=== PATIENT | male | born 1970 | race American Indian/Alaskan Native ===

== ENCOUNTER 2020-01-14 14:58 | Outpatient (CLI) | payer BC ==
--- NOTE | 2020-01-14 16:02 | XRay Report ---
RIGHT KNEE 2 VIEWS INDICATION / CLINICAL INFORMATION: RIGHT KNEE INJURY. COMPARISON: None available. FINDINGS: Patellar spurring. Soft tissue thickening in the region of the patellar tendon. No other significant skeletal abnormality Signer Name: Ortega Damon MD FACR Signed: 01/14/2020 3:58 PM Workstation Name: [id number]
== END 2020-01-14 14:59 | disposition home or self-care (01) ==
LOC: XRAY 14:58
PROVIDERS: ATTEND Pediatrics
DX: M79.89 Other specified soft tissue disorders (principal); R93.6 Abnormal findings on diagnostic imaging of limbs

== ENCOUNTER 2021-10-06 16:43 | Inpatient (IN) | payer SELFPAY ==
[2021-10-06 18:38] LABS: Bilirubin,Urine NEG (Negative); Blood,Urine LG (Negative); Color,Urine Yellow (Yellow); Mucus,Urine FEW /HPF; Urobilinogen,Urine < 2.0 mg/dL (<2.0)
[2021-10-06 19:03] LABS: Basophils % (Auto) 0.3 % (0.0-1.8); Eosinophils # (Auto) 0.1 K/mm3 (0.0-0.4); Eosinophils % (Auto) 0.7 % (0.0-4.3); Hematocrit 35.2 % (35.5-45.6); Hemoglobin 11.6 gm/dl (11.8-15.2); Lymphocytes # (Auto) 1.1 K/mm3 (1.2-5.4); Lymphocytes % (Auto) 9.7 % (13.4-35.0); Mean Corpuscular HGB Conc 33 % (32-34); Mean Corpuscular Volume 83 fl (84-94); Monocytes # (Auto) 0.9 K/mm3 (0.0-0.8); Platelet Count 276 K/mm3 (140-440); Red Blood Count 4.23 M/mm3 (3.65-5.03); Red Cell Distribution Width 14.7 % (13.2-15.2)
[2021-10-06 19:38] LABS: Calcium 8.6 mg/dL (8.4-10.2)
--- NOTE | 2021-10-06 22:24 | XRay Report ---
ABDOMEN 3 VIEW(S) INDICATION: constipation abd pain. COMPARISON: None available. FINDINGS: Bowel gas pattern: There is an expected amount of stool along the colon. No significant abnormality. Free air: None seen. Stones: None seen. Chest: No acute findings. Additional Findings: No additional significant findings. IMPRESSION: No significant abnormality to explain the patient's complaints. Signer Name: Lasha Petty MD Signed: 10/06/2021 10:19 PM Workstation Name: [id number]
[2021-10-07] MEDS ORDERED: SODIUM CHLORIDE 0.9% 1000 ML 1,000 ML IV ONE (02:35)
--- NOTE | 2021-10-07 04:07 | Cat Scan Report ---
CT ABDOMEN AND PELVIS WITHOUT CONTRAST INDICATION / CLINICAL INFORMATION: flank and right pelvic pain. Dysuria. TECHNIQUE: Axial CT images were obtained through the abdomen and pelvis without IV contrast. All CT scans at [facility] are performed using CT dose reduction for ALARA by means of automated exposure control. COMPARISON: Acute abdominal series from 10/06/2021. FINDINGS: LOWER CHEST: There is mild bibasilar atelectasis without other significant abnormalities. LIVER: Numerous cysts are seen throughout the liver. A event sales representative cyst located posteriorly along the right hepatic lobe measures up to 3.6 cm on image 47 of series 2. No other significant abnormalit y. GALLBLADDER: There is cholelithiasis without evidence of acute cholecystitis. BILE DUCTS: No significant abnormality. PANCREAS: No significant abnormality. SPLEEN: No significant abnormality. ADRENALS: No significant abnormality. RIGHT KIDNEY/URETER: There is mild hydroureteronephrosis and moderate right perinephric fat stranding without visualization of an obstructive mass or stone. LEFT KIDNEY/URETER: A large mass containing calcifications arises from the left upper renal pole marie uring 8.5 x 8.4 cm in axial dimensions on image 65 of series 2 with a craniocaudal dimension of 8.4 c m with evidence of invasion of the renal collecting system. There is mild left hydroureteronephrosis without evidence of an obstructive mass or stone. No other significant abnormality. STOMACH/SMALL BOWEL: No significant abnormality. COLON: No significant abnormality. APPENDIX: No significant abnormality. PERITONEUM: No free fluid. No free air. No fluid collection. LYMPH NODES: No significant adenopathy. VASCULATURE: No significant abnormality. URINARY BLADDER: There is moderate/severe distention of the bladder without other significant abnorma lities. REPRODUCTIVE ORGANS: The prostate gland is moderately enlarged. ADDITIONAL FINDINGS: None. BONES: No acute abnormality or aggressive appearing osseous lesion. Mild degenerative changes are not ed along the spine and pelvis. IMPRESSION: 1. Suspected left renal cell carcinoma as described above. No CT evidence of metastatic disease in [facility] abdomen or pelvis. 2. CT evidence of bladder outlet obstruction with likely secondary to bilateral hydroureteronephrosis , likely secondary to enlargement of the prostate gland. Please correlate with the clinical findings. Signer Name: Lasha Petty MD Signed: 10/07/2021 4:03 AM Workstation Name: [id number]
[2021-10-07] MEDS ORDERED: MORPHINE 4 MG/1 ML INJ IV PRN (05:38)
[2021-10-07] MEDS ORDERED: ONDANSETRON 4 MG/2 ML INJ IV PRN (05:38)
[2021-10-07] MEDS ORDERED: ALBUTEROL 2.5 MG/3 ML NEBU IH PRN (05:38)
[2021-10-07] MEDS ORDERED: ACETAMINOPHEN 325 MG TAB PO PRN (05:38)
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
--- NOTE | 2021-10-07 06:40 | Emergency Department Report ---
ED General Adult HPI - General Chief complaint: Abdominal Pain Stated complaint: GAS IN STOMACH/SIDE HURTS Time Seen by Provider: 10/07/21 02:36 Source: patient Mode of arrival: Ambulatory Limitations: No Limitations - History of Present Illness Initial comments: 51-year-old male with no reported significant past medical history exception of some alcohol use utilization presents emerged department complaining of having some issues with urination over the past 1 to 2 weeks. Has been progressively more frequent urges to urinate and with decreased urinary production and painful spasms to the flank region of an unknown etiology reports no hemoptysis no hematuria no hematemesis hematochezia no abdominal or flank trauma. Reports no previous known issues with his kidneys or his liver nor prostate. -: Gradual Severity scale (0 -10): 8 Quality: aching, dull Consistency: constant Improves with: none Worsens with: none Associated Symptoms: malaise. denies: confusion, chest pain, loss of appetite, syncope, weakness - Related Data Previous Rx's Medication Instructions Recorded Last Taken Type Cyclobenzaprine [Flexeril] 10 mg PO TID PRN #20 tablet 04/23/16 Unknown Rx Ibuprofen [Motrin 800 MG tab] 800 mg PO Q8HR PRN #30 tablet 04/23/16 Unknown Rx Allergies Allergy/AdvReac Type Severity Reaction Status Date / Time No Known Allergies Allergy Verified 10/07/21 05:43 ED Review of Systems ROS: Stated complaint: GAS IN STOMACH/SIDE HURTS Other details as noted in HPI Comment: All other systems reviewed and negative ED Past Medical Hx - Past Medical History Previous Medical History?: Yes Additional medical history: [id number] in 3 bulging disc - Surgical History Past Surgical History?: No - Social History Smoking Status: Never Smoker Substance Use Type: Alcohol - Medications Home Medications: Home Medications Medication Instructions Recorded Confirmed Last Taken Type Cyclobenzaprine [Flexeril] 10 mg PO TID PRN #20 tablet 04/23/16 Unknown Rx Ibuprofen [Motrin 800 MG tab] 800 mg PO Q8HR PRN #30 tablet 04/23/16 Unknown Rx ED Physical Exam - General Limitations: No Limitations General appearance: alert, in no apparent distress - Head Head exam: Present: atraumatic, normocephalic - Eye Eye exam: Present: normal appearance - ENT ENT exam: Present: mucous membranes moist - Neck Neck exam: Present: normal inspection - Respiratory Respiratory exam: Present: normal lung sounds bilaterally. Absent: respiratory distress - Cardiovascular Cardiovascular Exam: Present: regular rate, normal rhythm. Absent: systolic murmur, diastolic murmur, rubs, gallop - GI/Abdominal GI/Abdominal exam: Present: soft, tenderness (Vague discomfort in suprapubic region.), normal bowel sounds - Rectal Rectal exam: Present: deferred - Extremities Exam Extremities exam: Present: normal inspection - Back Exam Back exam: Present: normal inspection, CVA tenderness (R), CVA tenderness (L). Absent: paraspinal tenderness, vertebral tenderness - Neurological Exam Neurological exam: Present: alert, oriented X3, CN II-XII intact, normal gait - Psychiatric Psychiatric exam: Present: normal affect, normal mood - Skin Skin exam: Present: warm, dry, intact, normal color. Absent: rash ED Course Vital Signs 10/06/21 17:47 Temperature 98.7 F Pulse Rate 81 Respiratory 18 Rate Blood Pressure 138/76 O2 Sat by Pulse 99 Oximetry ED Medical Decision Making - Lab Data Result diagrams: 10/06/21 18:25 10/06/21 18:25 Lab Results 10/06/21 10/06/21 10/06/21 Range/Units 18:25 18:25 18:25 WBC 11.8 H (4.5-11.0) K/mm3 RBC 4.23 (3.65-5.03) M/mm3 Hgb 11.6 L (11.8-15.2) gm/dl Hct 35.2 L (35.5-45.6) % MCV 83 L (84-94) fl MCH 27 L (28-32) pg MCHC 33 (32-34) % RDW 14.7 (13.2-15.2) % Plt Count 276 (140-440) K/mm3 Lymph % (Auto) 9.7 L (13.4-35.0) % [place] % (Auto) 8.0 H (0.0-7.3) % Eos % (Auto) 0.7 (0.0-4.3) % Baso % (Auto) 0.3 (0.0-1.8) % Lymph # (Auto) 1.1 L (1.2-5.4) K/mm3 [place] # (Auto) 0.9 H (0.0-0.8) K/mm3 Eos # (Auto) 0.1 (0.0-0.4) K/mm3 Baso # (Auto) 0.0 (0.0-0.1) K/mm3 Seg Neutrophils % 81.3 H (40.0-70.0) % Seg Neutrophils # 9.6 H (1.8-7.7) K/mm3 Sodium 135 L (137-145) mmol/L Potassium 4.1 (3.6-5.0) mmol/L Chloride 93.5 L (98-107) mmol/L Carbon Dioxide 25 (22-30) mmol/L Anion Gap 21 mmol/L BUN 61 H (9-20) mg/dL Creatinine 8.2 H (0.8-1.3) mg/dL Estimated GFR 8 ml/min BUN/Creatinine Ratio 7 % Glucose 105 H (75-100) mg/dL Calcium 8.6 (8.4-10.2) mg/dL Phosphorus (2.5-4.5) mg/dL Magnesium (1.7-2.3) mg/dL Total Bilirubin 0.50 (0.1-1.2) mg/dL AST 21 (5-40) units/L ALT 24 (7-56) units/L Alkaline Phosphatase 61 (35-129) units/L Lactate Dehydrogenase (91-180) units/L Total Creatine Kinase (55-170) units/L Total Protein 7.4 (6.3-8.2) g/dL Albumin 4.0 (3.9-5) g/dL Albumin/Globulin Ratio 1.2 % Lipase 24 (13-60) units/L Urine Color (Yellow) Urine Turbidity (Clear) Urine pH (5.0-7.0) Ur Specific [place] (1.003-1.030) Urine Protein (Negative) mg/dL Urine Glucose (UA) (Negative) mg/dL Urine Ketones (Negative) mg/dL Urine Blood (Negative) Urine Nitrite (Negative) Urine Bilirubin (Negative) Urine Urobilinogen (<2.0) mg/dL Ur Leukocyte Esterase (Negative) Urine WBC (Auto) (0.0-6.0) /HPF Urine RBC (Auto) (0.0-6.0) /HPF U Epithel Cells (Auto) (0-13.0) /HPF Urine Mucus /HPF 05/21/22 05/21/22 05/21/22 Range/Units 18:25 18:25 Unknown WBC (4.5-11.0) K/mm3 RBC (3.65-5.03) M/mm3 Hgb (11.8-15.2) gm/dl Hct (35.5-45.6) % MCV (84-94) fl MCH (28-32) pg MCHC (32-34) % RDW (13.2-15.2) % Plt Count (140-440) K/mm3 Lymph % (Auto) (13.4-35.0) % [place] % (Auto) (0.0-7.3) % Eos % (Auto) (0.0-4.3) % Baso % (Auto) (0.0-1.8) % Lymph # (Auto) (1.2-5.4) K/mm3 [place] # (Auto) (0.0-0.8) K/mm3 Eos # (Auto) (0.0-0.4) K/mm3 Baso # (Auto) (0.0-0.1) K/mm3 Seg Neutrophils % (40.0-70.0) % Seg Neutrophils # (1.8-7.7) K/mm3 Sodium (137-145) mmol/L Potassium (3.6-5.0) mmol/L Chloride (98-107) mmol/L Carbon Dioxide (22-30) mmol/L Anion Gap mmol/L BUN (9-20) mg/dL Creatinine (0.8-1.3) mg/dL Estimated GFR ml/min BUN/Creatinine Ratio % Glucose (75-100) mg/dL Calcium (8.4-10.2) mg/dL Phosphorus 4.90 H (2.5-4.5) mg/dL Magnesium 2.60 H (1.7-2.3) mg/dL Total Bilirubin (0.1-1.2) mg/dL AST (5-40) units/L ALT (7-56) units/L Alkaline Phosphatase (35-129) units/L Lactate Dehydrogenase 374 H (91-180) units/L Total Creatine Kinase 1047 H (55-170) units/L Total Protein (6.3-8.2) g/dL Albumin (3.9-5) g/dL Albumin/Globulin Ratio % Lipase (13-60) units/L Urine Color Yellow (Yellow) Urine Turbidity Slightly-cloudy (Clear) Urine pH 7.0 (5.0-7.0) Ur Specific [place] 1.010 (1.003-1.030) Urine Protein 30 mg/dl (Negative) mg/dL Urine Glucose (UA) Neg (Negative) mg/dL Urine Ketones Neg (Negative) mg/dL Urine Blood Lg (Negative) Urine Nitrite Neg (Negative) Urine Bilirubin Neg (Negative) Urine Urobilinogen < 2.0 (<2.0) mg/dL Ur Leukocyte Esterase Neg (Negative) Urine WBC (Auto) 6.0 (0.0-6.0) /HPF Urine RBC (Auto) 29.0 (0.0-6.0) /HPF U Epithel Cells (Auto) 2.0 (0-13.0) /HPF Urine Mucus Few /HPF - Radiology Data Radiology results: report reviewed [facility] [address] [place] [address] Cat Scan Report Signed Patient: HELADIO BELTRAN JR MR#: [id number] : 1970 Acct:[id number] Age/Sex: 51 / M ADM Date: 10/06/21 Loc: ED Attending Dr: Ordering Physician: JOSE LUIS KELLEY Date of Service: 10/07/21 Procedure(s): CT abdomen pelvis wo con Accession Number(s): [id number] cc: JOSE LUIS KELLEY CT ABDOMEN AND PELVIS WITHOUT CONTRAST INDICATION / CLINICAL INFORMATION: flank and right pelvic pain. Dysuria. TECHNIQUE: Axial CT images were obtained through the abdomen and pelvis without IV contrast. All CT scans at this location are performed using CT dose reduction for ALARA by means of automated exposure control. COMPARISON: Acute abdominal series from 10/06/2021. FINDINGS: LOWER CHEST: There is mild bibasilar atelectasis without other significant abnormalities. LIVER: Numerous cysts are seen throughout the liver. A escrow representative cyst located posteriorly along the right hepatic lobe measures up to 3.6 cm on image 47 of series 2. No other significant abnormality. GALLBLADDER: There is cholelithiasis without evidence of acute cholecystitis. BILE DUCTS: No significant abnormality. PANCREAS: No significant abnormality. SPLEEN: No significant abnormality. ADRENALS: No significant abnormality. RIGHT KIDNEY/URETER: There is mild hydroureteronephrosis and moderate right perinephric fat stranding without visualization of an obstructive mass or stone. LEFT KIDNEY/URETER: A large mass containing calcifications arises from the left upper renal pole measuring 8.5 x 8.4 cm in axial dimensions on image 65 of series 2 with a craniocaudal dimension of 8.4 cm with evidence of invasion of the renal collecting system. There is mild left hydroureteronephrosis without evidence of an obstructive mass or stone. No other significant abnormality. STOMACH/SMALL BOWEL: No significant abnormality. COLON: No significant abnormality. APPENDIX: No significant abnormality. PERITONEUM: No free fluid. No free air. No fluid collection. LYMPH NODES: No significant adenopathy. VASCULATURE: No significant abnormality. URINARY BLADDER: There is moderate/severe distention of the bladder without other significant abnormalities. REPRODUCTIVE ORGANS: The prostate gland is moderately enlarged. ADDITIONAL FINDINGS: None. BONES: No acute abnormality or aggressive appearing osseous lesion. Mild degenerative changes are noted along the spine and pelvis. IMPRESSION: 1. Suspected left renal cell carcinoma as described above. No CT evidence of metastatic disease in the abdomen or pelvis. 2. CT evidence of bladder outlet obstruction with likely secondary to bilateral hydroureteronephrosis, likely secondary to enlargement of the prostate gland. Please correlate with the clinical findings. Signer Name: Lasha Petty MD Signed: 10/07/2021 4:03 AM Workstation Name: [id number] Transcribed By: [place] Dictated By: Lasha Petty MD Electronically Authenticated By: Lasha Petty MD Signed Date/Time: 10/07/21 0403 DD/ 0357 TD/TT: - Medical Decision Making 51-year-old male with acute renal failure and apparent metastatic lesions to the left kidney. No lower extremity edema present. No prior history. Soni catheter inserted. IV fluids initiated consulted with attending plan is to admit hospitalist accepted admission see his note for more detail. Critical care attestation.: If time is entered above; I have spent that time in minutes in the direct care of this critically ill patient, excluding procedure time. ED Disposition Clinical Impression: Renal failure, Urinary retention due to benign prostatic hyperplasia Disposition: ADMITTED INPATIENT Is pt being admited?: Yes Does the pt Need Aspirin: No Condition: Stable
--- NOTE | 2021-10-07 09:16 | Event Note ---
Date: 10/07/21 Patient was evaluated this morning, and he was found to be hemodynamically stable. #Bilateral hydroureteronephrosis #Obstructive/postrenal SAMMIE #Urinary retention #Hypermagnesemia #Hyperphosphatemia Creatinine 8.2 (baseline unknown), magnesium 2.6, phosphorus 4.9 Continue with Soni placement and monitor strict I's/O's. Creatinine should improve with IV fluid resuscitation and Soni management. Starting Flomax 0.4 mg daily Nephrology consulted; pending recs. Neurology consulted; pending recs. #Renal mass CT abdomen/pelvis without contrast (10/07/2021) revealing "large mass containing calcifications arising from the left upper renal pole measuring 8.5 x 8.4 cm with evidence of invasion of the renal collecting system. There is mild bilateral hydroureteronephrosis without visualization of an obstructive mass or stone. Suspected left renal cell carcinoma". Nephrology consulted; pending recs Urology consulted; pending recs #Rhabdomyolysis Creatine kinase 1047 Continue IV fluid resuscitation. Continue to monitor. #Leukocytosis WBC 11.8 Low clinical suspicion for infectious etiology given that the patient is hemodynamically stable, afebrile, and not showing other signs of SIRS. Continue to monitor. #Microcytic anemia Hemoglobin 8.6 Likely secondary to anemia of chronic disease should the renal mass be found to be malignant. Pending iron panel + TIBC Transfuse if hemoglobin less than 7 or patient becomes symptomatic. Continue to monitor. #Alcohol dependence - Counseled patient on the importance of ETOH cessation. Assess patient's current ETOH consumption. Assisted with trying to arrange resources for patient to adequately work towards ETOH cessation. Patient expresses understanding. Continue daily thiamine, folic acid, and multivitamin. -Time: +15 mins #Coordination of CARE time: 30 minutes. Total visit time equals 30 or more minutes with greater than 50% spent [id number] on coordination of care and counseling. #Advanced care planning -Disease education conducted, care plan discussed, diagnoses discussed, prognosis discussed, and patient acknowledges understanding with care plan -Time: +30 min
[2021-10-07] MEDS: IPRATROPIUM/ALBUTEROL SULFATE 3 ML AMPUL.NEB IH SCH ×3 (09:33→19:20)
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
[2021-10-07] MEDS ORDERED: FAMOTIDINE 20 MG/2 ML INJ IV SCH ×2 (10:00)
[2021-10-07] MEDS: TAMSULOSIN 0.4 MG CAP PO SCH (10:51)
[2021-10-07 11:21] LABS: Hematocrit 36.2 % (35.5-45.6); Hemoglobin 11.8 gm/dl (11.8-15.2); Mean Corpuscular HGB Conc 33 % (32-34); Mean Corpuscular Volume 83 fl (84-94); Platelet Count 291 K/mm3 (140-440); Red Blood Count 4.37 M/mm3 (3.65-5.03); Red Cell Distribution Width 15.1 % (13.2-15.2)
--- NOTE | 2021-10-07 18:19 | Electrocardiograph Report ---
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
[2021-10-07] MEDS: HEPARIN 5,000 UNIT/1 ML VIAL SUB-Q SCH (18:47)
[2021-10-08] MEDS: MORPHINE 2 MG/1 ML INJ IV PRN ×2 (01:39→01:41)
[2021-10-08] MEDS: HEPARIN 5,000 UNIT/1 ML VIAL SUB-Q SCH ×3 (01:47→22:15)
[2021-10-08] MEDS: SODIUM CHLORIDE 0.45% 1000 ML 1,000 ML IV SCH ×3 (01:50→22:20)
[2021-10-08 06:01] LABS: Basophils # (Auto) 0.1 K/mm3 (0.0-0.1); Eosinophils # (Auto) 0.2 K/mm3 (0.0-0.4); Eosinophils % (Auto) 3.6 % (0.0-4.3); Hematocrit 33.7 % (35.5-45.6); Lymphocytes # (Auto) 1.6 K/mm3 (1.2-5.4); Lymphocytes % (Auto) 24.6 % (13.4-35.0); Mean Corpuscular HGB Conc 33 % (32-34); Mean Corpuscular Volume 83 fl (84-94); Monocytes # (Auto) 0.7 K/mm3 (0.0-0.8); Monocytes % (Auto) 11.5 % (0.0-7.3); Platelet Count 274 K/mm3 (140-440); Red Blood Count 4.04 M/mm3 (3.65-5.03); Red Cell Distribution Width 15.1 % (13.2-15.2)
[2021-10-08] MEDS: IPRATROPIUM/ALBUTEROL SULFATE 3 ML AMPUL.NEB IH SCH (06:15)
[2021-10-08 06:19] LABS: Calcium 8.7 mg/dL (8.4-10.2)
[2021-10-08 07:51] LABS: Iron 61 ug/dL (49-181); Total Iron Binding Capacity 182 mcg/dL (250-450)
[2021-10-08] MEDS: TAMSULOSIN 0.4 MG CAP PO SCH (10:12)
[2021-10-08] MEDS: FAMOTIDINE 20 MG TAB PO SCH ×2 (10:12→22:15)
--- NOTE | 2021-10-08 10:50 | Progress Note ---
Assessment and Plan Assessment and plan: #Bilateral hydroureteronephrosis #Obstructive/postrenal AKIimproved #Urinary retention #Hypermagnesemia #Hyperphosphatemia Creatinine 8.2 (baseline unknown)--> 5.8--> 1.8 Magnesium 2.6, phosphorus 4.9. Continue to monitor with daily labs. Continue with Soni placement and monitor strict I's/O's. Creatinine should improve with IV fluid resuscitation and Soni management. Continue Flomax 0.4 mg daily Nephrology consulted; appreciate recs. Urology consulted; pending recs #Renal mass CT abdomen/pelvis without contrast (10/07/2021) revealing "large mass containing calcifications arising from the left upper renal pole measuring 8.5 x 8.4 cm with evidence of invasion of the renal collecting system. There is mild bilateral hydroureteronephrosis without visualization of an obstructive mass or stone. Suspected left renal cell carcinoma". Nephrology consulted; appreciate recs Hematology/oncology consulted; pending recs Due to the concern for renal cell carcinoma, biopsy is typically avoided in order to prevent seeding of the tract that is formed. Resection will likely be the ultimate therapy. Referring to hematology/oncology for recommendations. #Rhabdomyolysis Creatine kinase 1047 Continue IV fluid resuscitation. Continue to monitor. #Leukocytosisresolved WBC 11.8 Low clinical suspicion for infectious etiology given that the patient is hemodynamically stable, afebrile, and not showing other signs of SIRS. Continue to monitor. #Microcytic anemia Hemoglobin 8.6 Likely secondary to anemia of chronic disease should the renal mass be found to be malignant. Iron 61, TIBC 182 Transfuse if hemoglobin less than 7 or patient becomes symptomatic. Continue to monitor. #Alcohol dependence - Counseled patient on the importance of ETOH cessation. Assess patient's c urrent ETOH consumption. Assisted with trying to arrange resources for patient to adequately work towards ETOH cessation. Patient expresses understanding. Continue daily thiamine, folic acid, and multivitamin. -Time: +15 mins #Advanced care planning -Disease education conducted, care plan discussed, diagnoses discussed, prognosis discussed, and patient acknowledges understanding with care plan -Time: +30 min Disposition Plan: Continue medical management Total Time Spent with Patient (Minutes): 45 minutes History Interval history: No acute events overnight. Hospitalist Physical - Constitutional Vitals: Temp Pulse Resp BP Pulse Ox 98.8 F 84 18 132/60 95 10/08/21 01:48 10/08/21 06:22 10/08/21 06:22 10/08/21 01:48 10/08/21 06:19 General appearance: Present: no acute distress, well-nourished - EENT Eyes: Present: PERRL, EOM intact ENT: hearing intact, clear oral mucosa, dentition normal - Neck Neck: Present: supple, normal ROM - Respiratory Respiratory effort: normal Respiratory: bilateral: CTA - Cardiovascular Rhythm: regular Heart Sounds: Present: S1 & S2 - Extremities Extremities: no ischemia, pulses intact, pulses symmetrical, No edema, normal temperature, normal color, Full ROM Peripheral Pulses: within normal limits - Abdominal General gastrointestinal: soft, non-tender, non-distended, normal bowel sounds - Integumentary Integumentary: Present: clear, warm, dry - Psychiatric Psychiatric: appropriate mood/affect, intact judgment & insight, memory intact, cooperative - Neurologic Neurologic: CNII-XII intact, moves all extremities - Allied Health Allied health notes reviewed: nursing Results - Labs CBC & Chem 7: 10/08/21 05:26 10/08/21 05:26 Labs: Laboratory Last Values WBC 6.4 K/mm3 (4.5-11.0) 10/08/21 05:26 RBC 4.04 M/mm3 (3.65-5.03) 10/08/21 05:26 Hgb 11.0 gm/dl (11.8-15.2) L 10/08/21 05:26 Hct 33.7 % (35.5-45.6) L 10/08/21 05:26 MCV 83 fl (84-94) L 10/08/21 05:26 MCH 27 pg (28-32) L 10/08/21 05:26 MCHC 33 % (32-34) 10/08/21 05:26 RDW 15.1 % (13.2-15.2) 10/08/21 05:26 Plt Count 274 K/mm3 (140-440) 10/08/21 05:26 Lymph % (Auto) 24.6 % (13.4-35.0) 10/08/21 05:26 [place] % (Auto) 11.5 % (0.0-7.3) H 10/08/21 05:26 Eos % (Auto) 3.6 % (0.0-4.3) 10/08/21 05:26 Baso % (Auto) 1.0 % (0.0-1.8) 10/08/21 05:26 Lymph # (Auto) 1.6 K/mm3 (1.2-5.4) 10/08/21 05:26 [place] # (Auto) 0.7 K/mm3 (0.0-0.8) 10/08/21 05:26 Eos # (Auto) 0.2 K/mm3 (0.0-0.4) 10/08/21 05:26 Baso # (Auto) 0.1 K/mm3 (0.0-0.1) 10/08/21 05:26 Seg Neutrophils % 59.3 % (40.0-70.0) 10/08/21 05:26 Seg Neutrophils # 3.8 K/mm3 (1.8-7.7) 10/08/21 05:26 Sodium 140 mmol/L (137-145) 10/08/21 05:26 Potassium 4.8 mmol/L (3.6-5.0) 10/08/21 05:26 Chloride 104.9 mmol/L (98-107) 10/08/21 05:26 Carbon Dioxide 26 mmol/L (22-30) 10/08/21 05:26 Anion Gap 14 mmol/L 10/08/21 05:26 BUN 26 mg/dL (9-20) H 10/08/21 05:26 Creatinine 1.8 mg/dL (0.8-1.3) H D 10/08/21 05:26 Estimated GFR 48 ml/min 10/08/21 05:26 BUN/Creatinine Ratio 14 % 10/08/21 05:26 Glucose 85 mg/dL (75-100) 10/08/21 05:26 Calcium 8.7 mg/dL (8.4-10.2) 10/08/21 05:26 Phosphorus 4.90 mg/dL (2.5-4.5) H 10/06/21 18:25 Magnesium 2.60 mg/dL (1.7-2.3) H 10/06/21 18:25 Iron 61 ug/dL (49-181) 10/08/21 05:26 TIBC 182 mcg/dL (250-450) L 10/08/21 05:26 Total Bilirubin 0.50 mg/dL (0.1-1.2) 10/06/21 18:25 AST 21 units/L (5-40) 10/06/21 18:25 ALT 24 units/L (7-56) 10/06/21 18:25 Alkaline Phosphatase 61 units/L (35-129) 10/06/21 18:25 Lactate Dehydrogenase 374 units/L (91-180) H 10/06/21 18:25 Total Creatine Kinase 1047 units/L (55-170) H 10/06/21 18:25 Total Protein 7.4 g/dL (6.3-8.2) 10/06/21 18:25 Albumin 4.0 g/dL (3.9-5) 10/06/21 18:25 Albumin/Globulin Ratio 1.2 % 10/06/21 18:25 Lipase 24 units/L (13-60) 10/06/21 18:25 Urine Color Yellow (Yellow) 10/06/21 Unknown Urine Turbidity Slightly-cloudy (Clear) 10/06/21 Unknown Urine pH 7.0 (5.0-7.0) 10/06/21 Unknown Ur Specific [place] 1.010 (1.003-1.030) 10/06/21 Unknown Urine Protein 30 mg/dl mg/dL (Negative) 10/06/21 Unknown Urine Glucose (UA) Neg mg/dL (Negative) 10/06/21 Unknown Urine Ketones Neg mg/dL (Negative) 10/06/21 Unknown Urine Blood Lg (Negative) 10/06/21 Unknown Urine Nitrite Neg (Negative) 10/06/21 Unknown Urine Bilirubin Neg (Negative) 10/06/21 Unknown Urine Urobilinogen < 2.0 mg/dL (<2.0) 10/06/21 Unknown Ur Leukocyte Esterase Neg (Negative) 10/06/21 Unknown Urine WBC (Auto) 6.0 /HPF (0.0-6.0) 10/06/21 Unknown Urine RBC (Auto) 29.0 /HPF (0.0-6.0) 10/06/21 Unknown U Epithel Cells (Auto) 2.0 /HPF (0-13.0) 10/06/21 Unknown Urine Mucus Few /HPF 10/06/21 Unknown Soni/IV: Voiding Method Toilet Active Medications - Current Medications Current Medications: Generic Name Dose Route Start Last Admin Trade Name Freq PRN Reason Stop Dose Admin Acetaminophen 650 mg 10/07/21 05:38 Acetaminophen 325 Mg Tab PO Q4H PRN Pain MILD(1-3)/Fever >100.5/STARKS Albuterol 2.5 mg 10/07/21 05:38 Albuterol 2.5 Mg/3 Ml Nebu IH Q3HRT PRN Shortness Of Breath Famotidine 20 mg 10/08/21 10:00 10/08/21 10:12 Famotidine 20 Mg Tab PO 20 mg BID KENNETH Administration Heparin Sodium (Porcine) 5,000 unit 10/07/21 10:00 10/08/21 10:12 Heparin 5,000 Unit/1 Ml Vial SUB-Q 5,000 unit Q12HR KENNETH Administration Sodium Chloride 1,000 mls @ 100 mls/hr 10/07/21 06:00 10/08/21 01:50 Nacl 0.45% 1000 Ml IV 100 mls/hr DIRECT KENNETH Administration Morphine Sulfate 2 mg 10/07/21 05:38 10/08/21 01:41 Morphine 2 Mg/1 Ml Inj IV 2 mg Q4H PRN Administration Pain, Moderate (4-6) Ondansetron HCl 4 mg 10/07/21 05:38 Ondansetron 4 Mg/2 Ml Inj IV Q8H PRN Nausea And Vomiting Sodium Chloride 10 ml 10/07/21 10:00 10/08/21 10:13 Sodium Chloride 0.9% 10 Ml Flush Syringe IV 10 ml BID KENNETH Administration Sodium Chloride 10 ml 10/07/21 05:38 Sodium Chloride 0.9% 10 Ml Flush Syringe IV PRN PRN LINE FLUSH Tamsulosin HCl 0.4 mg 10/07/21 10:00 10/08/21 10:12 Tamsulosin 0.4 Mg Cap PO 0.4 mg QDAY KENNETH Administration Tramadol HCl 25 mg 10/08/21 10:24 Tramadol 50 Mg Tab PO Q4H PRN Pain, Moderate (4-6)
--- NOTE | 2021-10-08 10:59 | Progress Note ---
Assessment and Plan - Patient Problems (1) Urinary retention due to benign prostatic hyperplasia Current Visit: Yes Status: Acute Plan to address problem: S/p delarosa placement with increased urine output. Follow urology recommendations (2) SAMMIE (acute kidney injury) Current Visit: Yes Status: Acute Plan to address problem: secondary to urinary retention, renal function significantly improved on delarosa. Cont supportive care for SAMMIE, avoid further nephrotoxins, NSAIDs, IV contrast. Will monitor lytes, renal parameters closely and make further recommendations. (3) Renal cell carcinoma Current Visit: Yes Status: Acute Plan to address problem: recommend urology/Hem/Onc consultation (4) Anemia in chronic illness Current Visit: Yes Status: Acute Subjective Date of service: 10/08/21 Principal diagnosis: SAMMIE Interval history: Patient awake, alert, in no acute distress, increased UOP on delarosa Objective - Vital Signs Vital signs: Vital Signs - 12hr 10/08/21 10/08/21 10/08/21 01:48 06:19 06:22 Temperature 98.8 F Pulse Rate 80 Pulse Rate [ 84 Anterior Bilateral Throughout] Respiratory 16 Rate Respiratory 18 Rate [Anterior Bilateral Throughout] Blood Pressure 132/60 [Left] O2 Sat by Pulse 99 95 Oximetry - General Appearance General appearance: well-developed, well-nourished, appears stated age EENT: ATNC, PERRL, mucous membranes moist Neck: no JVD Respiratory: Present: Clear to Ascultation Cardiology: regular, S1S2 Gastrointestinal: normoactive bowel sounds Integumentary: no rash, other (no edema ) Neurologic: no focal deficit, alert and oriented x3, strength 5/5, CN 3-12 intact Psychiatric: mood/affect appropriate, cooperative - Lab 10/08/21 05:26 10/08/21 05:26 Most recent lab results Calcium 8.7 mg/dL (8.4-10.2) 10/08/21 05:26 Phosphorus 4.90 mg/dL (2.5-4.5) H 10/06/21 18:25 Magnesium 2.60 mg/dL (1.7-2.3) H 10/06/21 18:25 Medications & Allergies - Medications Allergies/Adverse Reactions: Allergies No Known Allergies Allergy (Verified 10/07/21 05:43) Home Medications: Home Medications Medication Instructions Recorded Confirmed Last Taken Type Cyclobenzaprine [Flexeril] 10 mg PO TID PRN #20 tablet 04/23/16 10/08/21 10/06/21 Rx Ibuprofen [Motrin 800 MG tab] 800 mg PO Q8HR PRN #30 tablet 04/23/16 10/08/21 10/06/21 Rx Active Medications: Generic Name Dose Route Start Last Admin Trade Name Freq PRN Reason Stop Dose Admin Acetaminophen 650 mg 10/07/21 05:38 Acetaminophen 325 Mg Tab PO Q4H PRN Pain MILD(1-3)/Fever >100.5/STARKS Albuterol 2.5 mg 10/07/21 05:38 Albuterol 2.5 Mg/3 Ml Nebu IH Q3HRT PRN Shortness Of Breath Famotidine 20 mg 10/08/21 10:00 10/08/21 10:12 Famotidine 20 Mg Tab PO 20 mg BID KENNETH Administration Heparin Sodium (Porcine) 5,000 unit 10/07/21 10:00 10/08/21 10:12 Heparin 5,000 Unit/1 Ml Vial SUB-Q 5,000 unit Q12HR KENNETH Administration Sodium Chloride 1,000 mls @ 100 mls/hr 10/07/21 06:00 10/08/21 01:50 Nacl 0.45% 1000 Ml IV 100 mls/hr DIRECT KENNETH Administration Morphine Sulfate 2 mg 10/07/21 05:38 10/08/21 01:41 Morphine 2 Mg/1 Ml Inj IV 2 mg Q4H PRN Administration Pain, Moderate (4-6) Ondansetron HCl 4 mg 10/07/21 05:38 Ondansetron 4 Mg/2 Ml Inj IV Q8H PRN Nausea And Vomiting Sodium Chloride 10 ml 10/07/21 10:00 10/08/21 10:13 Sodium Chloride 0.9% 10 Ml Flush Syringe IV 10 ml BID KENNETH Administration Sodium Chloride 10 ml 10/07/21 05:38 Sodium Chloride 0.9% 10 Ml Flush Syringe IV PRN PRN LINE FLUSH Tamsulosin HCl 0.4 mg 10/07/21 10:00 10/08/21 10:12 Tamsulosin 0.4 Mg Cap PO 0.4 mg QDAY KENNETH Administration Tramadol HCl 25 mg 10/08/21 10:24 Tramadol 50 Mg Tab PO Q4H PRN Pain, Moderate (4-6)
[2021-10-08] MEDS: traMADol 50 MG TAB PO PRN ×2 (11:49→15:46)
[2021-10-09] MEDS: traMADol 50 MG TAB PO PRN ×2 (04:45→17:57)
[2021-10-09 06:41] LABS: BUN/Creatinine Ratio 16; Blood Urea Nitrogen 21 mg/dL (9-20); Hemolysis Index 5
[2021-10-09] MEDS: TAMSULOSIN 0.4 MG CAP PO SCH (09:24)
[2021-10-09] MEDS: HEPARIN 5,000 UNIT/1 ML VIAL SUB-Q SCH ×2 (09:24→21:28)
[2021-10-09] MEDS: FAMOTIDINE 20 MG TAB PO SCH ×2 (09:24→21:28)
[2021-10-09] MEDS: SODIUM CHLORIDE 0.45% 1000 ML 1,000 ML IV SCH ×2 (09:25→21:29)
--- NOTE | 2021-10-09 09:34 | Progress Note ---
Assessment and Plan - Patient Problems (1) Urinary retention due to benign prostatic hyperplasia Current Visit: Yes Status: Acute Plan to address problem: S/p delarosa placement with increased urine output. Follow urology recommendations (2) SAMMIE (acute kidney injury) Current Visit: Yes Status: Acute Plan to address problem: secondary to urinary retention, renal function significantly improved on delarosa. Cont supportive care for SAMMIE, avoid further nephrotoxins, NSAIDs, IV contrast. Will monitor lytes, renal parameters closely and make further recommendations. (3) Renal cell carcinoma Current Visit: Yes Status: Acute Plan to address problem: recommend urology/Hem/Onc consultation (4) Anemia in chronic illness Current Visit: Yes Status: Acute Subjective Date of service: 10/09/21 Principal diagnosis: SAMMIE Interval history: Patient awake, alert, in no acute distress, increased UOP on delarosa Objective - Vital Signs Vital signs: Vital Signs - 12hr 10/08/21 10/09/21 10/09/21 22:41 04:49 07:17 Temperature 98.5 F 98.3 F Pulse Rate 69 73 Respiratory 20 18 Rate Blood Pressure 124/76 140/80 O2 Sat by Pulse 100 100 97 Oximetry - General Appearance General appearance: well-developed, well-nourished, appears stated age EENT: ATNC, PERRL, mucous membranes moist Neck: no JVD Respiratory: Present: Clear to Ascultation Cardiology: regular, S1S2 Gastrointestinal: normoactive bowel sounds Integumentary: no rash, other (no edema ) Neurologic: no focal deficit, alert and oriented x3, strength 5/5, CN 3-12 intact Psychiatric: mood/affect appropriate, cooperative - Lab 10/08/21 05:26 10/09/21 05:39 Most recent lab results Calcium 9.0 mg/dL (8.4-10.2) 10/09/21 05:39 Phosphorus 4.90 mg/dL (2.5-4.5) H 10/06/21 18:25 Magnesium 2.60 mg/dL (1.7-2.3) H 10/06/21 18:25 Medications & Allergies - Medications Allergies/Adverse Reactions: Allergies No Known Allergies Allergy (Verified 10/07/21 05:43) Home Medications: Home Medications Medication Instructions Recorded Confirmed Last Taken Type Cyclobenzaprine [Flexeril] 10 mg PO TID PRN #20 tablet 04/23/16 10/08/21 10/06/21 Rx Ibuprofen [Motrin 800 MG tab] 800 mg PO Q8HR PRN #30 tablet 04/23/16 10/08/21 10/06/21 Rx Active Medications: Generic Name Dose Route Start Last Admin Trade Name Shaniqua PRN Reason Stop Dose Admin Acetaminophen 650 mg 10/07/21 05:38 Acetaminophen 325 Mg Tab PO Q4H PRN Pain MILD(1-3)/Fever >100.5/STARKS Albuterol 2.5 mg 10/07/21 05:38 Albuterol 2.5 Mg/3 Ml Nebu IH Q3HRT PRN Shortness Of Breath Famotidine 20 mg 10/08/21 10:00 10/09/21 09:24 Famotidine 20 Mg Tab PO 20 mg BID KENNETH Administration Heparin Sodium (Porcine) 5,000 unit 10/07/21 10:00 10/09/21 09:24 Heparin 5,000 Unit/1 Ml Vial SUB-Q 5,000 unit Q12HR KENNETH Administration Sodium Chloride 1,000 mls @ 100 mls/hr 10/07/21 06:00 10/09/21 09:25 Nacl 0.45% 1000 Ml IV 100 mls/hr DIRECT KENNETH Administration Morphine Sulfate 2 mg 10/07/21 05:38 10/08/21 01:41 Morphine 2 Mg/1 Ml Inj IV 2 mg Q4H PRN Administration Pain, Moderate (4-6) Ondansetron HCl 4 mg 10/07/21 05:38 Ondansetron 4 Mg/2 Ml Inj IV Q8H PRN Nausea And Vomiting Sodium Chloride 10 ml 10/07/21 10:00 10/09/21 09:25 Sodium Chloride 0.9% 10 Ml Flush Syringe IV 10 ml BID KENNETH Administration Sodium Chloride 10 ml 10/07/21 05:38 Sodium Chloride 0.9% 10 Ml Flush Syringe IV PRN PRN LINE FLUSH Tamsulosin HCl 0.4 mg 10/07/21 10:00 10/09/21 09:24 Tamsulosin 0.4 Mg Cap PO 0.4 mg QDAY KENNETH Administration Tramadol HCl 25 mg 10/08/21 10:24 10/09/21 04:45 Tramadol 50 Mg Tab PO 25 mg Q4H PRN Administration Pain, Moderate (4-6)
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
--- NOTE | 2021-10-09 11:53 | Progress Note ---
Assessment and Plan Assessment and plan: Bilateral hydroureteronephrosis Obstructive/postrenal AKIimproved Urinary retention Hypermagnesemia Hyperphosphatemia Creatinine 8.2 (baseline unknown)--> 5.8--> 1.8 Magnesium 2.6, phosphorus 4.9. Continue to monitor with daily labs. Continue with Soni placement and monitor strict I's/O's. Creatinine should improve with IV fluid resuscitation and Soni management. Continue Flomax 0.4 mg daily Nephrology consulted; appreciate recs. Urology consulted; pending recs Renal mass CT abdomen/pelvis without contrast (10/07/2021) revealing "large mass containing calcifications arising from the left upper renal pole measuring 8.5 x 8.4 cm with evidence of invasion of the renal collecting system. There is mild bilateral hydroureteronephrosis without visualization of an obstructive mass or stone. Suspected left renal cell carcinoma". Nephrology consulted; appreciate recs Hematology/oncology consulted; pending recs Due to the concern for renal cell carcinoma, biopsy is typically avoided in order to prevent seeding of the tract that is formed. Resection will likely be the ultimate therapy. Referring to hematology/oncology for recommendations. Rhabdomyolysis Creatine kinase 1047 Continue IV fluid resuscitation. Continue to monitor. Leukocytosisresolved WBC 11.8 Low clinical suspicion for infectious etiology given that the patient is hemodynamically stable, afebrile, and not showing other signs of SIRS. Continue to monitor. Microcytic anemia Hemoglobin 8.6 Likely secondary to anemia of chronic disease should the renal mass be found to be malignant. Iron 61, TIBC 182 Transfuse if hemoglobin less than 7 or patient becomes symptomatic. Continue to monitor. Alcohol dependence - Counseled patient on the importance of ETOH cessation. Assess patient's current ETOH consumption. Assisted with trying to arrange resources for patient to adequately work towards ETOH cessation. Patient expresses understanding. Continue daily thiamine, folic acid, and multivitamin. History Interval history: No new issues overnight Hospitalist Physical - Constitutional Vitals: Temp Pulse Resp BP Pulse Ox 98.3 F 73 18 140/80 97 10/09/21 04:49 10/09/21 04:49 10/09/21 04:49 10/09/21 04:49 10/09/21 07:17 General appearance: Present: no acute distress, well-nourished - EENT Eyes: Present: PERRL, EOM intact ENT: hearing intact, clear oral mucosa, dentition normal - Neck Neck: Present: supple, normal ROM - Respiratory Respiratory effort: normal Respiratory: bilateral: CTA - Cardiovascular Rhythm: regular Heart Sounds: Present: S1 & S2. Absent: gallop, rub - Extremities Extremities: no ischemia, No edema, Full ROM - Abdominal General gastrointestinal: soft, non-tender, non-distended, normal bowel sounds - Integumentary Integumentary: Present: clear, warm, dry - Neurologic Neurologic: CNII-XII intact, moves all extremities Results - Labs CBC & Chem 7: 10/08/21 05:26 10/09/21 05:39 Labs: Laboratory Last Values WBC 6.4 K/mm3 (4.5-11.0) 10/08/21 05:26 RBC 4.04 M/mm3 (3.65-5.03) 10/08/21 05:26 Hgb 11.0 gm/dl (11.8-15.2) L 10/08/21 05:26 Hct 33.7 % (35.5-45.6) L 10/08/21 05:26 MCV 83 fl (84-94) L 10/08/21 05:26 MCH 27 pg (28-32) L 10/08/21 05:26 MCHC 33 % (32-34) 10/08/21 05:26 RDW 15.1 % (13.2-15.2) 10/08/21 05:26 Plt Count 274 K/mm3 (140-440) 10/08/21 05:26 Lymph % (Auto) 24.6 % (13.4-35.0) 10/08/21 05:26 [place] % (Auto) 11.5 % (0.0-7.3) H 10/08/21 05:26 Eos % (Auto) 3.6 % (0.0-4.3) 10/08/21 05:26 Baso % (Auto) 1.0 % (0.0-1.8) 10/08/21 05:26 Lymph # (Auto) 1.6 K/mm3 (1.2-5.4) 10/08/21 05:26 [place] # (Auto) 0.7 K/mm3 (0.0-0.8) 10/08/21 05:26 Eos # (Auto) 0.2 K/mm3 (0.0-0.4) 10/08/21 05:26 Baso # (Auto) 0.1 K/mm3 (0.0-0.1) 10/08/21 05:26 Seg Neutrophils % 59.3 % (40.0-70.0) 10/08/21 05:26 Seg Neutrophils # 3.8 K/mm3 (1.8-7.7) 10/08/21 05:26 Sodium 138 mmol/L (137-145) 10/09/21 05:39 Potassium 4.7 mmol/L (3.6-5.0) 10/09/21 05:39 Chloride 105.7 mmol/L (98-107) 10/09/21 05:39 Carbon Dioxide 23 mmol/L (22-30) 10/09/21 05:39 Anion Gap 14 mmol/L 10/09/21 05:39 BUN 21 mg/dL (9-20) H 10/09/21 05:39 Creatinine 1.3 mg/dL (0.8-1.3) 10/09/21 05:39 Estimated GFR > 60 ml/min 10/09/21 05:39 BUN/Creatinine Ratio 16 % 10/09/21 05:39 Glucose 139 mg/dL (75-100) H 10/09/21 05:39 Calcium 9.0 mg/dL (8.4-10.2) 10/09/21 05:39 Phosphorus 4.90 mg/dL (2.5-4.5) H 10/06/21 18:25 Magnesium 2.60 mg/dL (1.7-2.3) H 10/06/21 18:25 Iron 61 ug/dL (49-181) 10/08/21 05:26 TIBC 182 mcg/dL (250-450) L 10/08/21 05:26 Ferritin 666.4 ng/mL (30.0-300.0) H 10/08/21 10:15 Total Bilirubin 0.50 mg/dL (0.1-1.2) 10/06/21 18:25 AST 21 units/L (5-40) 10/06/21 18:25 ALT 24 units/L (7-56) 10/06/21 18:25 Alkaline Phosphatase 61 units/L (35-129) 10/06/21 18:25 Lactate Dehydrogenase 374 units/L (91-180) H 10/06/21 18:25 Total Creatine Kinase 1047 units/L (55-170) H 10/06/21 18:25 Total Protein 7.4 g/dL (6.3-8.2) 10/06/21 18:25 Albumin 4.0 g/dL (3.9-5) 10/06/21 18:25 Albumin/Globulin Ratio 1.2 % 10/06/21 18:25 Lipase 24 units/L (13-60) 10/06/21 18:25 Urine Color Yellow (Yellow) 10/06/21 Unknown Urine Turbidity Slightly-cloudy (Clear) 10/06/21 Unknown Urine pH 7.0 (5.0-7.0) 10/06/21 Unknown Ur Specific [place] 1.010 (1.003-1.030) 10/06/21 Unknown Urine Protein 30 mg/dl mg/dL (Negative) 10/06/21 Unknown Urine Glucose (UA) Neg mg/dL (Negative) 10/06/21 Unknown Urine Ketones Neg mg/dL (Negative) 10/06/21 Unknown Urine Blood Lg (Negative) 10/06/21 Unknown Urine Nitrite Neg (Negative) 10/06/21 Unknown Urine Bilirubin Neg (Negative) 10/06/21 Unknown Urine Urobilinogen < 2.0 mg/dL (<2.0) 10/06/21 Unknown Ur Leukocyte Esterase Neg (Negative) 10/06/21 Unknown Urine WBC (Auto) 6.0 /HPF (0.0-6.0) 10/06/21 Unknown Urine RBC (Auto) 29.0 /HPF (0.0-6.0) 10/06/21 Unknown U Epithel Cells (Auto) 2.0 /HPF (0-13.0) 10/06/21 Unknown Urine Mucus Few /HPF 10/06/21 Unknown Soni/IV: Voiding Method Indwelling Catheter Active Medications - Current Medications Current Medications: Generic Name Dose Route Start Last Admin Trade Name Freq PRN Reason Stop Dose Admin Acetaminophen 650 mg 10/07/21 05:38 Acetaminophen 325 Mg Tab PO Q4H PRN Pain MILD(1-3)/Fever >100.5/STARKS Albuterol 2.5 mg 10/07/21 05:38 Albuterol 2.5 Mg/3 Ml Nebu IH Q3HRT PRN Shortness Of Breath Famotidine 20 mg 10/08/21 10:00 10/09/21 09:24 Famotidine 20 Mg Tab PO 20 mg BID KENNETH Administration Heparin Sodium (Porcine) 5,000 unit 10/07/21 10:00 10/09/21 09:24 Heparin 5,000 Unit/1 Ml Vial SUB-Q 5,000 unit Q12HR KENNETH Administration Sodium Chloride 1,000 mls @ 100 mls/hr 10/07/21 06:00 10/09/21 09:25 Nacl 0.45% 1000 Ml IV 100 mls/hr DIRECT KENNETH Administration Morphine Sulfate 2 mg 10/07/21 05:38 10/08/21 01:41 Morphine 2 Mg/1 Ml Inj IV 2 mg Q4H PRN Administration Pain, Moderate (4-6) Ondansetron HCl 4 mg 10/07/21 05:38 Ondansetron 4 Mg/2 Ml Inj IV Q8H PRN Nausea And Vomiting Sodium Chloride 10 ml 10/07/21 10:00 10/09/21 09:25 Sodium Chloride 0.9% 10 Ml Flush Syringe IV 10 ml BID KENNETH Administration Sodium Chloride 10 ml 10/07/21 05:38 Sodium Chloride 0.9% 10 Ml Flush Syringe IV PRN PRN LINE FLUSH Tamsulosin HCl 0.4 mg 10/07/21 10:00 10/09/21 09:24 Tamsulosin 0.4 Mg Cap PO 0.4 mg QDAY KENNETH Administration Tramadol HCl 25 mg 10/08/21 10:24 10/09/21 04:45 Tramadol 50 Mg Tab PO 25 mg Q4H PRN Administration Pain, Moderate (4-6)
--- NOTE | 2021-10-09 14:23 | Cat Scan Report ---
CT CHEST WITHOUT CONTRAST INDICATION / CLINICAL INFORMATION: Staging; rule out metastasis. Renal mass. TECHNIQUE: Axial CT images were obtained through the chest without contrast. All CT scans at this critical access hospital ation are performed using CT dose reduction for ALARA by means of automated exposure control. COMPARISON: No previous CT chest. Correlation is made with the CT abdomen pelvis without contrast 09/17. FINDINGS: HEART: No significant abnormality. CORONARY ARTERY CALCIFICATION: Absent -- None. THORACIC AORTA: No significant abnormality. MEDIASTINUM / MILVIA: No significant abnormality. PLEURA: No pleural effusion. No pneumothorax. LUNGS: No acute air space or interstitial disease. There is a tiny 2 mm nodule in the posterior right upper lobe on image 54, series 2 which is too small to characterize. I suspect a benign etiology alt danette follow-up is recommended. No suspicious pulmonary nodule or mass. ADDITIONAL FINDINGS: None. UPPER ABDOMEN: Numerous liver cysts. Large heterogeneous left renal mass measuring up to 10.3 cm is p artially imaged. SKELETAL SYSTEM: No significant abnormality. No suspicious bony lesion. IMPRESSION: No convincing evidence for metastatic disease to the chest. Tiny 2 mm nodule is noted in the right up per lobe. Consider follow-up in 3 months to ensure stability. Signer Name: Ayan Mayes Jr, MD Signed: 10/09/2021 2:19 PM Workstation Name: [id number]
[2021-10-10 04:36] VITALS: BP 129/77
[2021-10-10] MEDS: SODIUM CHLORIDE 0.45% 1000 ML 1,000 ML IV SCH (06:01)
[2021-10-10] MEDS: TAMSULOSIN 0.4 MG CAP PO SCH (10:30)
[2021-10-10] MEDS: FAMOTIDINE 20 MG TAB PO SCH (10:30)
[2021-10-10] MEDS: HEPARIN 5,000 UNIT/1 ML VIAL SUB-Q SCH (10:31)
--- NOTE | 2021-10-10 13:30 | Progress Note ---
Assessment and Plan Assessment and plan: Bilateral hydroureteronephrosis Obstructive/postrenal AKIimproved Urinary retention Hypermagnesemia Hyperphosphatemia Creatinine 8.2 (baseline unknown)--> 5.8--> 1.8 Magnesium 2.6, phosphorus 4.9. Continue to monitor with daily labs. Continue with Soni placement and monitor strict I's/O's. Creatinine should improve with IV fluid resuscitation and Soni management. Continue Flomax 0.4 mg daily Nephrology consulted; appreciate recs. Urology consulted; pending recs Renal mass CT abdomen/pelvis without contrast (10/07/2021) revealing "large mass containing calcifications arising from the left upper renal pole measuring 8.5 x 8.4 cm with evidence of invasion of the renal collecting system. There is mild bilateral hydroureteronephrosis without visualization of an obstructive mass or stone. Suspected left renal cell carcinoma". Nephrology consulted; appreciate recs Hematology/oncology consulted; pending recs Due to the concern for renal cell carcinoma, biopsy is typically avoided in order to prevent seeding of the tract that is formed. Resection will likely be the ultimate therapy. Referring to hematology/oncology for recommendations. Rhabdomyolysis Creatine kinase 1047 Continue IV fluid resuscitation. Continue to monitor. Leukocytosisresolved WBC 11.8 Low clinical suspicion for infectious etiology given that the patient is hemodynamically stable, afebrile, and not showing other signs of SIRS. Continue to monitor. Microcytic anemia Hemoglobin 8.6 Likely secondary to anemia of chronic disease should the renal mass be found to be malignant. Iron 61, TIBC 182 Transfuse if hemoglobin less than 7 or patient becomes symptomatic. Continue to monitor. Alcohol dependence - Counseled patient on the importance of ETOH cessation. Assess patient's current ETOH consumption. Assisted with trying to arrange resources for patient to adequately work towards ETOH cessation. Patient expresses understanding. Continue daily thiamine, folic acid, and multivitamin. 10/10/2021. We will follow-up tumor markers, H CG and AFP. Oncology recommends chest CT without contrast for staging and to rule out mets. Urology consulted. Dr. Hoskins reports that the evaluation is not an emergency and can be followed up as an outpatient. Continue with Soni catheter. Consider nephrectomy if no metastasis. If metastatic, immunotherapy and nephrectomy is warranted History Interval history: No new issues overnight Hospitalist Physical - Constitutional Vitals: Temp Pulse Resp BP Pulse Ox 98.3 F 94 H 18 129/77 98 10/10/21 04:18 10/10/21 04:18 10/10/21 04:18 10/10/21 04:18 10/10/21 09:00 General appearance: Present: no acute distress, well-nourished - EENT Eyes: Present: PERRL, EOM intact ENT: hearing intact, clear oral mucosa, dentition normal - Neck Neck: Present: supple, normal ROM - Respiratory Respiratory effort: normal Respiratory: bilateral: CTA - Cardiovascular Rhythm: regular Heart Sounds: Present: S1 & S2. Absent: gallop, rub - Extremities Extremities: no ischemia, No edema, Full ROM - Abdominal General gastrointestinal: soft, non-tender, non-distended, normal bowel sounds - Integumentary Integumentary: Present: clear, warm, dry - Neurologic Neurologic: CNII-XII intact, moves all extremities Results - Labs CBC & Chem 7: 10/08/21 05:26 10/09/21 05:39 Labs: Laboratory Last Values WBC 6.4 K/mm3 (4.5-11.0) 10/08/21 05:26 RBC 4.04 M/mm3 (3.65-5.03) 10/08/21 05:26 Hgb 11.0 gm/dl (11.8-15.2) L 10/08/21 05:26 Hct 33.7 % (35.5-45.6) L 10/08/21 05:26 MCV 83 fl (84-94) L 10/08/21 05:26 MCH 27 pg (28-32) L 10/08/21 05:26 MCHC 33 % (32-34) 10/08/21 05:26 RDW 15.1 % (13.2-15.2) 10/08/21 05:26 Plt Count 274 K/mm3 (140-440) 10/08/21 05:26 Lymph % (Auto) 24.6 % (13.4-35.0) 10/08/21 05:26 [place] % (Auto) 11.5 % (0.0-7.3) H 10/08/21 05:26 Eos % (Auto) 3.6 % (0.0-4.3) 10/08/21 05:26 Baso % (Auto) 1.0 % (0.0-1.8) 10/08/21 05:26 Lymph # (Auto) 1.6 K/mm3 (1.2-5.4) 10/08/21 05:26 [place] # (Auto) 0.7 K/mm3 (0.0-0.8) 10/08/21 05:26 Eos # (Auto) 0.2 K/mm3 (0.0-0.4) 10/08/21 05:26 Baso # (Auto) 0.1 K/mm3 (0.0-0.1) 10/08/21 05:26 Seg Neutrophils % 59.3 % (40.0-70.0) 10/08/21 05:26 Seg Neutrophils # 3.8 K/mm3 (1.8-7.7) 10/08/21 05:26 Sodium 138 mmol/L (137-145) 10/09/21 05:39 Potassium 4.7 mmol/L (3.6-5.0) 10/09/21 05:39 Chloride 105.7 mmol/L (98-107) 10/09/21 05:39 Carbon Dioxide 23 mmol/L (22-30) 10/09/21 05:39 Anion Gap 14 mmol/L 10/09/21 05:39 BUN 21 mg/dL (9-20) H 10/09/21 05:39 Creatinine 1.3 mg/dL (0.8-1.3) 10/09/21 05:39 Estimated GFR > 60 ml/min 10/09/21 05:39 BUN/Creatinine Ratio 16 % 10/09/21 05:39 Glucose 139 mg/dL (75-100) H 10/09/21 05:39 Calcium 9.0 mg/dL (8.4-10.2) 10/09/21 05:39 Phosphorus 4.90 mg/dL (2.5-4.5) H 10/06/21 18:25 Magnesium 2.60 mg/dL (1.7-2.3) H 10/06/21 18:25 Iron 61 ug/dL (49-181) 10/08/21 05:26 TIBC 182 mcg/dL (250-450) L 10/08/21 05:26 Ferritin 666.4 ng/mL (30.0-300.0) H 10/08/21 10:15 Total Bilirubin 0.50 mg/dL (0.1-1.2) 10/06/21 18:25 AST 21 units/L (5-40) 10/06/21 18:25 ALT 24 units/L (7-56) 10/06/21 18:25 Alkaline Phosphatase 61 units/L (35-129) 10/06/21 18:25 Lactate Dehydrogenase 374 units/L (91-180) H 10/06/21 18:25 Total Creatine Kinase 1047 units/L (55-170) H 10/06/21 18:25 Total Protein 7.4 g/dL (6.3-8.2) 10/06/21 18:25 Albumin 4.0 g/dL (3.9-5) 10/06/21 18:25 Albumin/Globulin Ratio 1.2 % 10/06/21 18:25 Lipase 24 units/L (13-60) 10/06/21 18:25 HCG, Quant < 2 mIU/mL (0-1) H 10/09/21 12:57 Urine Color Yellow (Yellow) 10/06/21 Unknown Urine Turbidity Slightly-cloudy (Clear) 10/06/21 Unknown Urine pH 7.0 (5.0-7.0) 10/06/21 Unknown Ur Specific [place] 1.010 (1.003-1.030) 10/06/21 Unknown Urine Protein 30 mg/dl mg/dL (Negative) 10/06/21 Unknown Urine Glucose (UA) Neg mg/dL (Negative) 10/06/21 Unknown Urine Ketones Neg mg/dL (Negative) 10/06/21 Unknown Urine Blood Lg (Negative) 10/06/21 Unknown Urine Nitrite Neg (Negative) 10/06/21 Unknown Urine Bilirubin Neg (Negative) 10/06/21 Unknown Urine Urobilinogen < 2.0 mg/dL (<2.0) 10/06/21 Unknown Ur Leukocyte Esterase Neg (Negative) 10/06/21 Unknown Urine WBC (Auto) 6.0 /HPF (0.0-6.0) 10/06/21 Unknown Urine RBC (Auto) 29.0 /HPF (0.0-6.0) 10/06/21 Unknown U Epithel Cells (Auto) 2.0 /HPF (0-13.0) 10/06/21 Unknown Urine Mucus Few /HPF 10/06/21 Unknown Soni/IV: Voiding Method Indwelling Catheter Active Medications - Current Medications Current Medications: Generic Name Dose Route Start Last Admin Trade Name Freq PRN Reason Stop Dose Admin Acetaminophen 650 mg 10/07/21 05:38 Acetaminophen 325 Mg Tab PO Q4H PRN Pain MILD(1-3)/Fever >100.5/STARKS Albuterol 2.5 mg 10/07/21 05:38 Albuterol 2.5 Mg/3 Ml Nebu IH Q3HRT PRN Shortness Of Breath Famotidine 20 mg 10/08/21 10:00 10/10/21 10:30 Famotidine 20 Mg Tab PO 20 mg BID KENNETH Administration Heparin Sodium (Porcine) 5,000 unit 10/07/21 10:00 10/10/21 10:31 Heparin 5,000 Unit/1 Ml Vial SUB-Q 5,000 unit Q12HR KENNETH Administration Sodium Chloride 1,000 mls @ 100 mls/hr 10/07/21 06:00 10/10/21 06:01 Nacl 0.45% 1000 Ml IV 100 mls/hr DIRECT KENENTH Administration Morphine Sulfate 2 mg 10/07/21 05:38 10/08/21 01:41 Morphine 2 Mg/1 Ml Inj IV 2 mg Q4H PRN Administration Pain, Moderate (4-6) Ondansetron HCl 4 mg 10/07/21 05:38 Ondansetron 4 Mg/2 Ml Inj IV Q8H PRN Nausea And Vomiting Sodium Chloride 10 ml 10/07/21 10:00 10/10/21 10:34 Sodium Chloride 0.9% 10 Ml Flush Syringe IV 10 ml BID KENNETH Administration Sodium Chloride 10 ml 10/07/21 05:38 Sodium Chloride 0.9% 10 Ml Flush Syringe IV PRN PRN LINE FLUSH Tamsulosin HCl 0.4 mg 10/07/21 10:00 10/10/21 10:30 Tamsulosin 0.4 Mg Cap PO 0.4 mg QDAY KENNETH Administration Tramadol HCl 25 mg 10/08/21 10:24 10/09/21 17:57 Tramadol 50 Mg Tab PO 25 mg Q4H PRN Administration Pain, Moderate (4-6)
--- NOTE | 2021-10-10 13:34 | Progress Note ---
Assessment and Plan jacquie has delarosa renal mass pt fully aware f/u friday in office home with delarosa dictated Subjective Date of service: 10/10/21 Principal diagnosis: SAMMIE Objective - Constitutional Vitals: Vital Signs - 12hr 10/10/21 10/10/21 04:18 09:00 Temperature 98.3 F Pulse Rate 94 H Respiratory 18 Rate Blood Pressure 129/77 O2 Sat by Pulse 98 98 Oximetry General appearance: Present: no acute distress - Neck Neck: supple - Respiratory Respiratory effort: normal Extremities: no ischemia - Gastrointestinal General gastrointestinal: Present: soft, non-tender Rectal Exam: normal rectal tone - Labs CBC & Chem 7: 10/08/21 05:26 10/09/21 05:39 Labs: Abnormal lab results 10/09/21 Range/Units 12:57 HCG, Quant < 2 H (0-1) mIU/mL Medications & Allergies - Medications Allergies/Adverse Reactions: Allergies No Known Allergies Allergy (Verified 10/07/21 05:43) Home Medications: Home Medications Medication Instructions Recorded Confirmed Last Taken Type Cyclobenzaprine [Flexeril] 10 mg PO TID PRN #20 tablet 04/23/16 10/08/21 10/06/21 Rx Ibuprofen [Motrin 800 MG tab] 800 mg PO Q8HR PRN #30 tablet 04/23/16 10/08/21 10/06/21 Rx Active Medications: Generic Name Dose Route Start Last Admin Trade Name Freq PRN Reason Stop Dose Admin Acetaminophen 650 mg 10/07/21 05:38 Acetaminophen 325 Mg Tab PO Q4H PRN Pain MILD(1-3)/Fever >100.5/STARKS Albuterol 2.5 mg 10/07/21 05:38 Albuterol 2.5 Mg/3 Ml Nebu IH Q3HRT PRN Shortness Of Breath Famotidine 20 mg 10/08/21 10:00 10/10/21 10:30 Famotidine 20 Mg Tab PO 20 mg BID KENNETH Administration Heparin Sodium (Porcine) 5,000 unit 10/07/21 10:00 10/10/21 10:31 Heparin 5,000 Unit/1 Ml Vial SUB-Q 5,000 unit Q12HR KENNETH Administration Sodium Chloride 1,000 mls @ 100 mls/hr 10/07/21 06:00 10/10/21 06:01 Nacl 0.45% 1000 Ml IV 100 mls/hr DIRECT KENNETH Administration Morphine Sulfate 2 mg 10/07/21 05:38 10/08/21 01:41 Morphine 2 Mg/1 Ml Inj IV 2 mg Q4H PRN Administration Pain, Moderate (4-6) Ondansetron HCl 4 mg 10/07/21 05:38 Ondansetron 4 Mg/2 Ml Inj IV Q8H PRN Nausea And Vomiting Sodium Chloride 10 ml 10/07/21 10:00 10/10/21 10:34 Sodium Chloride 0.9% 10 Ml Flush Syringe IV 10 ml BID KENNETH Administration Sodium Chloride 10 ml 10/07/21 05:38 Sodium Chloride 0.9% 10 Ml Flush Syringe IV PRN PRN LINE FLUSH Tamsulosin HCl 0.4 mg 10/07/21 10:00 10/10/21 10:30 Tamsulosin 0.4 Mg Cap PO 0.4 mg QDAY KENNETH Administration Tramadol HCl 25 mg 10/08/21 10:24 10/09/21 17:57 Tramadol 50 Mg Tab PO 25 mg Q4H PRN Administration Pain, Moderate (4-6)
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
--- NOTE | 2021-10-12 07:25 | Consultation ---
DATE OF CONSULTATION: 10/10/2021 CHIEF COMPLAINT: Renal mass, urinary retention, renal insufficiency. HISTORY OF PRESENT ILLNESS: This is a 51-year-old gentleman in good health, who presented with urinary retention, constipation. His creatinine was elevated to 5.8, which is now normal at 1.3. He had a CT scan which shows mild to moderate hydronephrosis with distended bladder. He also has a 10 cm left renal mass. Never had gross hematuria. PAST MEDICAL HISTORY: Basically unremarkable. He denies any recent cold or decongestants. He had a CT of the abdomen and pelvis with no metastatic disease noted and 2 mm pulmonary nodule, nonspecific. PAST SURGICAL HISTORY: Negative. SOCIAL HISTORY: Negative. FAMILY HISTORY: Negative. REVIEW OF SYSTEMS: Unremarkable until recently. PHYSICAL EXAMINATION: GENERAL: He is awake. He is in no distress. ABDOMEN: Soft, nondistended. No guarding, rebound. Minimal fullness left upper quadrant. GENITALIA: Testicles are descended bilaterally. No palpable masses. Digital rectal exam, not enlarged prostate rectally. No nodules, no tenderness. IMPRESSION AND PLAN: Urinary retention, azotemia, which is improved to normal. Soni draining clear urine. Left renal mass with possible collecting system invasion, likely will need left nephrectomy and Soni will remain in and we will give him a voiding trial within the next week. TID: [id number] RECEIPT: [id number] MELBA/YOON
== END 2021-10-10 15:27 | disposition home or self-care (01) | DRG 694 ==
LOC: ED 16:43 → 3A 10-07 05:38
PROVIDERS: ADMIT Hospitalist; ATTEND Hospitalist
DX: N13.30 Unspecified hydronephrosis (principal); C64.9 Malignant neoplasm of unspecified kidney, except renal pelvis; C79.00 Secondary malignant neoplasm of unspecified kidney and renal pelvis; M62.82 Rhabdomyolysis; N17.9 Acute kidney failure, unspecified; F10.10 Alcohol abuse, uncomplicated; D64.9 Anemia, unspecified; E83.41 Hypermagnesemia; N40.1 Benign prostatic hyperplasia with lower urinary tract symptoms; E83.39 Other disorders of phosphorus metabolism
CPT/HCPCS: 36415; 71250; 74022; 74176; 80048; 80053; 81001; 82106; 82378; 82550; 82728; 83550; 83615; 83690; 83735; 84100; 84702; 85025; 85027; 86301; 93005; 94640; G0378; J3490; J1644; J2270; J7030

== ENCOUNTER 2021-10-22 14:05 | Emergency (ER) | payer SELFPAY ==
[2021-10-22 14:58] VITALS: BP 120/89
== END 2021-10-22 21:03 | disposition left against medical advice (07) ==
LOC: ED 14:05
DX: Z46.6 Encounter for fitting and adjustment of urinary device (principal); Z53.21 Procedure and treatment not carried out due to patient leaving prior to being seen by health care provider